=== PATIENT | male | born 1950 | race Caucasian/White ===

== ENCOUNTER → 2017-04-14 | Emergency (ER) | payer OTHER ==
[~2017-04-14] VITALS: Ht 177.8 cm; Wt 76.2 kg
[~2017-04-14] MED LIST: FLUVIRIN IM; LACTULOSE10 GM/151 PO; LASIX40 MG PO; NADOLOL20 MG PO; TRAZODONE HCL150 MG PO; XIFAXAN550 MG PO
--- OUTSIDE RECORDS SUMMARY | 2017-04-14 12:38 | XMS | Clinical Summary ---
Demographics + + + | Address | [address] | | | [place] [address] | + + + | Home Phone | | + + + | Preferred Language | Unknown | + + + | Marital Status | Single | + + + | Islam Affiliation | Unknown | + + + | Race | White | + + + | Ethnic Group | Not or | + + + Author + + + | Author | [facility] | + + + | Organization | [facility] | + + + | Address | Unknown | + + + | Phone | Unavailable | + + + Support + + +---------+ + | Name | Relationship | Address | Phone | + + +---------+ + | KAMRYN TERESA | ECON | Unknown | | + + +---------+ + Care Team Providers + +------+-------+ | Care Physician Office Specialist Name | Role | Phone | + +------+-------+ | Fariba Flores | PP | tel | + +------+-------+ Source Comments YONATAN is fully live on both [facility] and [facility] Allergies Not on File Current Medications Not on file Active Problems Not on file Encounters +--------+ + + + + | Date | Type | Specialty | Care Team | Description | +--------+ + + + + | 01/27/ | Telephone | | Michelle Son | Other (lab work RM) | | 2017 | | | | | +--------+ + + + + from Last 3 Months Social History + +-------+ +--------+------+ | Tobacco Use | Types | Packs/Day | Years | Date | | | | | Used | | + +-------+ +--------+------+ | Never Smoker | | | | | + +-------+ +--------+------+ + +------+---+---+ | Smokeless Tobacco: | Chew | | | | Current User | | | | + +------+---+---+ + + +---------+ + | Alcohol Use | Drinks/We | oz/Week | Comments | | | ek | | | + + +---------+ + | No | | | | + + +---------+ + + + + | Sex Assigned at | Date Recorded | | | | + + + | Not on file | | + + + Plan of Treatment + + + + + | Health Maintenance | Due Date | Last Done | Comments | + + + + + | INFLUENZA VACCINE | | 02/28/2016, 04/15/2006 | | | (FLU SHOT) | 7 | | | + + + + + Results Not on filefrom Last 3 Months"
== END | disposition home or self-care (01) ==
LOC: ED 10:02
DX: K70.9 Alcoholic liver disease, unspecified (principal); F10.129 Alcohol abuse with intoxication, unspecified; Y90.6 Blood alcohol level of 120-199 mg/100 ml; F17.200 Nicotine dependence, unspecified, uncomplicated; Z88.5 Allergy status to narcotic agent; Z79.899 Other long term (current) drug therapy; Z79.2 Long term (current) use of antibiotics
CPT/HCPCS: 71010; 80053; 81001; 82140; 83690; 85025; 85610; 96365; 96366; 96375; 99284; G0480; J2405; J3411; J7030